=== PATIENT | female | born 1990 | race Caucasian/White ===

== ENCOUNTER 2018-04-14 11:54 | Emergency (ER) | payer OTHER ==
[2015-10-15 22:03] VITALS: BMI 32.0
[2018-04-14] MEDS ORDERED: Lactated Ringer's 1,000 ML IV ONE (12:17)
[2018-04-14 13:02] LABS: BASO % 0.3 % (0.0-2.0); EOS # 0.1 K/uL (0.0-0.7); EOS % 0.8 % (0.0-4.0); HEMOGLOBIN 12.4 g/dL (11.0-16.0); LYMPH # 1.4 K/uL (1.0-4.3); LYMPH % 14.7 % (20.0-40.0); MEAN CORPUSCULAR HGB CONC 34.3 g/dL (33.0-37.0); MEAN PLATELET VOLUME 11.1 fL (7.2-11.7); MONO # 0.7 K/uL (0.0-0.8); MONO % 7.2 % (0.0-10.0); NEUT # 7.1 K/uL (1.8-7.0); RBC 4.12 Mil/uL (3.80-5.20); RED CELL DISTRIBUTION WIDTH 14.1 % (11.5-14.5); WHITE BLOOD COUNT 9.2 K/uL (4.8-10.8)
[2018-04-14 13:04] LABS: MEAN CELL VOLUME 87.6 fL (81.0-99.0)
[2018-04-14 13:05] LABS: SQUAMOUS EPITHIAL 2 /hpf (0-5); URINE BILIRUBIN NEGATIVE (NEGATIVE); URINE BLOOD NEGATIVE (NEGATIVE); URINE CLARITY Clear (Clear); URINE COLOR Yellow (YELLOW); URINE GLUCOSE (UA) NORMAL (Normal); URINE LEUKOCYTE ESTERASE NEG Leu/uL (Negative); URINE PROTEIN NEGATIVE (NEGATIVE); URINE UROBILINOGEN NORMAL mg/dL (0.2-1.0)
[2018-04-14] MEDS ORDERED: Betamethasone Soluspan 30 mg/5mL Inj Susp IM ONE (14:56)
--- NOTE | 2018-04-14 15:22 | US ---
Date of service: 04/14/2018 Indication: 31 wks , Please eval for cervical length Priors: None available Technique: Cervical length was measured. Request was made for the patient to return to the department for additional imaging due to limitations of this examination, per the immunology teacher the ordering doctor/floor declined. Findings : Cervix length measures approximately 3.2 cm. heart rate measures 129 beats per minute. Impression: Cervix length measures approximately 3.2 cm. heart rate measures 129 beats per minute.
--- NOTE | 2018-04-14 16:10 | OBHP ---
Datetime: 04/14/2018 15:59 IP Adm Impression: , intrauterine ; No Active Labor IP Admit Plan: Discharge home Admit Comment, IP Provider: 27 y/o at 31 wks presents with c/o ctx this morning for about and h r. She is not feeling any ctx at present. No c/o VB, LOF. + FM. PMH: Deneis PSH: Denies POBH: x 2 TOCO: Irr ctx EFM: Cat 1 SSE: Cx closed/ No pooling FFN Done VE: Closed Thick/High x 2 US for cervical length- 3.5 cm Labs- WNL, FFN negative A/P: 27 y/o at 31 wks ctx, No cervical changes x 2 IV hydration Pt doesn't feel any ctx US shows normal CL Betamethasone 12 mg im x1 labor precautions given F/U tomorrow for the second dose of beta Abdomen - PN: Normal FHR - Baseline A Provider: 130 Contraction Comments Provider: irregular Gestation - Est Wks by US: 31.0 EGA AdmitDate IP: 31.0 IP Chief Complaint: Uterine contractions NICHD Variability Prov Fetus A: Moderate 6-25bpm NICHD Accel Fetus A IP Provider: 10X10 Dilatation, Provider: 0 Effacement, Provider: 0 Station, Provider: -3 Genitourinary Exam: Normal
[2018-04-14 19:54] VITALS: BP 115/62; PULSE 93
== END 2018-04-14 15:53 | disposition home or self-care (01) ==
LOC: C.EROB 11:54
DX: O47.03 False labor before 37 completed weeks of gestation, third trimester (principal); Z3A.31 31 weeks gestation of pregnancy
CPT/HCPCS: 76830; 81001; 82731; 85025; 96372; 99283; J0702; J7120

== ENCOUNTER 2018-04-15 16:05 | Emergency (ER) | payer OTHER ==
[2015-10-15 22:03] VITALS: BMI 32.0
[2018-04-15] MEDS ORDERED: Betamethasone Soluspan 30 mg/5mL Inj Susp IM ONE (16:14)
[2018-04-16 15:54] VITALS: BP 115/66; PULSE 104
--- NOTE | 2018-04-17 14:03 | OBHP ---
Datetime: 04/15/2018 16:23 IP Adm Impression: , intrauterine ; No Active Labor IP Admit Plan: Observation/Evaluation; Discharge home Admit Comment, IP Provider: 27 y o at 31.1 weeks gestation via 1st trimester sono presents t alan for 2nd dose of betamethasone. Denies any acute complaints. Denies feeling cxs, LOF, or vag blee ding. Reports pos movement. Denies headache, dizziness, vision changes, chest pain, sob, n/v/d/ c, abd pain, urinary complaints, or other symptoms. POBhx: hx 2 prior NSVDs without complications GynHx: denies hx ovarian cysts, fibroids, or STDs PMhx: obesity PSurgHx: denies Allergies: denies Meds: vits Fam hx: denies Soc hx: denies smoking, EtOH, or illicit drug use Primary OB: clinic VE: fingertip, long, posterior heart tracing: baseline 140s, moderate accels, Cat I Irregular cxs on toco A/P: 27 y o at 31.1 weeks gestation via 1st trimester sono presents today for 2nd dose of betamethasone. Pt not in active labor at this time. Vaginal exam fingertip, long, posterior. Pt to be administered Celestone 12 mg x1. Pt stable for d/c to home, to follow-up with OB in clinic on 04/22/18 for appt. Pt instructed if she has vaginal bleeding, leakage of fluids, or feeling contractions, to call her OB or to report to her nearest emergency department. Pt seen, examined with, and plan d/w Dr. Villagran, attending physician. Zen Khoury DO PGY-1 Attending Note: patient seen and evaluated by me with the resident. I agree with the above as docu mented. Cervical exam confirmed by me. Patient received 2nd dose betamethasone. PTL precautions revie wed. Patient stable upon discharge from unit. Can discharge home as above Pelvic Type - PN: Adequate Extremities - PN: Normal Abdomen - PN: Normal Back - PN: Normal Breast - PN: Normal Lungs - PN: Normal Heart - PN: Normal Thyroid - PN: Normal Neurologic - PN: Normal HEENT - PN: Normal General - PN: Normal FHR - Baseline A Provider: 140 Membranes, Provider: Intact Contraction Comments Provider: irregular on toco EGA AdmitDate IP: 31.1 Vital Signs Provider: Reviewed; Within Normal Limits IP Chief Complaint: evaluation; Other NICHD Variability Prov Fetus A: Moderate 6-25bpm NICHD Accel Fetus A IP Provider: 10X10 FHR Category Provider Fetus A: Category I NICHD Decel Fetus A IP Provider: None Dilatation, Provider: 0 Effacement, Provider: 0 Station, Provider: -3 Genitourinary Exam: Normal DTRs - PN: Normal
== END 2018-04-15 16:41 | disposition home or self-care (01) ==
LOC: C.EROB 16:05
DX: Z36.89 Encounter for other specified antenatal screening (principal)
CPT/HCPCS: 96372; 99283; J0702

== ENCOUNTER 2018-09-04 10:21 | Emergency (ER) | payer OTHER ==
[2018-09-04 10:25] VITALS: BMI 32.5
[2018-09-04] MEDS ORDERED: Sodium Chloride 0.9% 1,000 ML IV ONE (10:56)
[2018-09-04 11:06] LABS: BASO % 0.3 % (0.0-2.0); EOS % 0.1 % (0.0-4.0); LYMPH # 1.1 K/uL (1.0-4.3); MEAN CORPUSCULAR HEMOGLOBIN 29.7 pg (27.0-31.0); MEAN CORPUSCULAR HGB CONC 34.1 g/dL (33.0-37.0); MONO # 0.6 K/uL (0.0-0.8); MONO % 7.9 % (0.0-10.0); NEUT # 6.5 K/uL (1.8-7.0); NEUT % 78.7 % (50.0-75.0); NRBC % 0.1 % (0.0-2.0); RBC 4.73 Mil/uL (3.80-5.20); RED CELL DISTRIBUTION WIDTH 14.1 % (11.5-14.5); WHITE BLOOD COUNT 8.2 K/uL (4.8-10.8)
[2018-09-04] MEDS ORDERED: Sodium Chloride 0.9% 1,000 ML ONE (11:08)
[2018-09-04 11:14] LABS: HCG,QUALITATIVE URINE NEGATIVE (NEGATIVE)
[2018-09-04 11:20] LABS: SQUAMOUS EPITHIAL 1 /hpf (0-5); URINE BILIRUBIN NEGATIVE (NEGATIVE); URINE BLOOD NEGATIVE (NEGATIVE); URINE CLARITY Clear (Clear); URINE COLOR Amber (YELLOW); URINE GLUCOSE (UA) NORMAL (Normal); URINE LEUKOCYTE ESTERASE NEG Leu/uL (Negative); URINE PROTEIN NEGATIVE (NEGATIVE); URINE UROBILINOGEN NORMAL mg/dL (0.2-1.0)
[2018-09-04 11:23] LABS: ALB/GLOB RATIO 1.3 (1.0-2.1); ALBUMIN 4.6 g/dL (3.5-5.0); ALT/SGPT 643 U/L (9-52); BLOOD UREA NITROGEN 10 mg/dL (7-17); CALCIUM 9.7 mg/dl (8.6-10.4); GFR NON-AFRICAN AMERICAN > 60; LIPASE 131 U/L (23-300)
[2018-09-04 11:45] LABS: AST/SGOT 889 U/L (14-36)
--- NOTE | 2018-09-04 12:29 | C.PDOC ---
History Of Present Illness 28 y/o female presents to the ED for evaluation of epigastric pain associated with a few episodes of non-bilious vomiting since this morning. No fevers or chills. Otherwise patient denies any chest pain, SOB, cough, sore throat, sneha rrhea, or other associated complaints. Time Seen by Provider: 09/04/18 10:32 Chief Complaint (Nursing): Abdominal Pain History Per: Patient History/Exam Limitations: no limitations Onset/Duration Of Symptoms: Hrs Current Symptoms Are (Timing): Still Present Severity: Moderate Location Of Pain/Discomfort: Epigastric Associated Symptoms: Nausea, Vomiting Past Medical History Reviewed: Historical Data, Nursing Documentation, Vital Signs Vital Signs: Last Vital Signs Temp 99.0 F 09/04/18 10:29 Pulse 64 09/04/18 11:56 Resp 19 09/04/18 11:56 BP 110/66 09/04/18 11:56 Pulse Ox 64 L 09/04/18 11:56 Family History: States: Unknown Family Hx - Social History Hx Tobacco Use: No Hx Alcohol Use: No Hx Substance Use: No - Immunization History Hx Influenza Vaccination: Yes (05/2018) Hx Pneumococcal Vaccination: No Review Of Systems Except As Marked, All Systems Reviewed And Found Negative. Constitutional: Negative for: Fever, Chills ENT: Negative for: Nose Congestion, Throat Pain Cardiovascular: Negative for: Chest Pain Respiratory: Negative for: Cough, Shortness of Breath Gastrointestinal: Positive for: Nausea, Vomiting, Abdominal Pain. Negative for: Diarrhea Musculoskeletal: Negative for: Back Pain Skin: Negative for: Rash Neurological: Negative for: Weakness, Dizziness Physical Exam - Physical Exam Appears: Well, Non-toxic, No Acute Distress Skin: Normal Color, Warm, No Rash Head: Normacephalic Eye(s): bilateral: PERRL Oral Mucosa: Moist Neck: Trachea Midline, No Midline Cervical Tenderness, No Paracervical Tenderness, Supple Chest: Symmetrical, No Deformity, No Tenderness Cardiovascular: Rhythm Regular, No Murmur Respiratory: No Rales, No Rhonchi, No Wheezing, Other (Lungs CTA bilaterally) Gastrointestinal/Abdominal: Soft, Tenderness (Mild epigastric tenderness), No Guarding, No Rebound Back: No CVA Tenderness Extremity: Bilateral: Atraumatic, Normal Color And Temperature, Normal ROM Neurological/Psych: Oriented x3, Normal Speech ED Course And Treatment - Laboratory Results Result Diagrams: 09/04/18 11:02 09/04/18 11:02 Lab Results: Total Bilirubin 1.0 mg/dL (0.2-1.3) 09/04/18 11:02 AST 889 U/L (14-36) H 09/04/18 11:02 ALT 643 U/L (9-52) H D 09/04/18 11:02 Alkaline Phosphatase 115 U/L (38-126) 09/04/18 11:02 Total Protein 8.2 g/dL (6.3-8.3) 09/04/18 11:02 Albumin 4.6 g/dL (3.5-5.0) 09/04/18 11:02 Globulin 3.5 gm/dL (2.2-3.9) 09/04/18 11:02 Albumin/Globulin Ratio 1.3 (1.0-2.1) 09/04/18 11:02 Lipase 131 U/L (23-300) 09/04/18 11:02 Urine Color [place] (YELLOW) 09/04/18 11:02 Urine Clarity Clear (Clear) 09/04/18 11:02 Urine pH 5.0 (5.0-8.0) 09/04/18 11:02 Ur Specific Dix 1.023 (1.003-1.030) 09/04/18 11:02 Urine Protein Negative mg/dL (NEGATIVE) 09/04/18 11:02 Urine Glucose (UA) Normal mg/dL (Normal) 09/04/18 11:02 Urine Ketones Negative mg/dL (NEGATIVE) 09/04/18 11:02 Urine Blood Negative (NEGATIVE) 09/04/18 11:02 Urine Nitrate Negative (NEGATIVE) 09/04/18 11:02 Urine Bilirubin Negative (NEGATIVE) 09/04/18 11:02 Urine Urobilinogen Normal mg/dL (0.2-1.0) 09/04/18 11:02 Ur Leukocyte Esterase Neg Joslyn/uL (Negative) 09/04/18 11:02 Urine WBC (Auto) 1 /hpf (0-5) 09/04/18 11:02 Ur Squamous Epith Cells 1 /hpf (0-5) 09/04/18 11:02 Urine HCG, Qual Negative (NEGATIVE) 09/04/18 11:02 Urine HCG, Qual Negative (NEGATIVE) 09/04/18 11:02 Urine POC: Negative O2 Sat by Pulse Oximetry: 97 (on RA) Pulse Ox Interpretation: Normal - CT Scan/US Gallbladder and hepatic Other Rad Studies (CT/US): Radiology Report Reviewed CT/US Interpretation: Creator : Day Cortes MD. Dictator : Day Cortes MD. Director Patient : Instructor Flying : Day Cortes MD. Approver2 : Report Date : 09/04/2018 13:03:39. My Comment : . Date of service: 09/04/2018. HISTORY: epigastric/RUQ pain. COMPARISON: None. TECHNIQUE: Sonographic evaluation of the right upper quadrant of the abdomen. FINDINGS: LIVER: Measures 16.0 cm in length. There is diffuse increased echogenicity of the liver parenchyma. No mass. No intrahepatic bile duct dilatation. GALLBLADDER: There are multiple gallstones. No wall thickening or pericholecystic fluid. The sonographic Washington's sign is negative. COMMON BILE DUCT: Measures 2.5 mm. No stones. No dilatation. PANCREAS: Unremarkable as visualized. No mass. No ductal dilatation. RIGHT KIDNEY: Measures 11.4 cm in length. Normal echogenicity. No calculus, mass, or hydronephrosis. AORTA: No aneurysmal dilatation. IVC: Unremarkable. OTHER FINDINGS: None . IMPRESSION: Cholelithiasis. No biliary dilatation. Fatty liver. Progress Note: Blood work and UA ordered. Patient given IV fluids, 40 mg IV Protonix, 20 mg IV Pepcid, and 4 mg IV Zofran. Labs reviewed. Will obtain Abdominal US to r/o gall bladder pathology. Pt was OBS in ED for 3 hrs and reports improvement in sx. Afebrile, hemodynamicaly stable. Non-toxic. Abd: benign, (-) guarding, (-) rebound, (-) localized tenderness. Back: (-) CVA tenderness. US results review and discussed with pt (+) gallbladder, no evidence of cholecystitis. Pt advised and ref. to f/u with PMD, GI in 2-3 days for re-eavl. return if any worsening or new chnages. Disposition Counseled Patient/Family Regarding: Studies Performed, Diagnosis, Need For Followup, Rx Given - Disposition Referrals: [facility] [Outside] Disposition: HOME/ ROUTINE Disposition Time: 13:20 Condition: STABLE Additional Instructions: Encourage fluids Take medication as prescribed BRAt diet for 1 week Avoid greasy, fried, spicy food for 2 weeks Follow up with PMD in 2-3 days for re-evaluation. return to ED if any worsening or new changes. Prescriptions: Famotidine [Pepcid] 20 mg PO BID #14 tab Pantoprazole Sodium [Protonix] 40 mg PO DAILY #14 ect Instructions: Gallstones, Nausea and Vomiting, Adult (DC) Forms: [employer] (Estonian) Print Language: SLOVAK - Clinical Impression Clinical Impression: Vomiting, Epigastric abdominal pain, Cholelithiasis - PA / OCCUPATIONAL THERAPIST'S ASSISTANT / Resident Statement MD/DO has reviewed & agrees with the documentation as recorded. - Scribe Statement The provider has reviewed the documentation as recorded by the Kellyibkai Ho All medical record entries made by the Kellyibkai were at my direction and person ally dictated by me. I have reviewed the chart and agree that the record accurately reflects my personal performance of the history, physical exam, medical decision making, and the department course for this patient. I have also personally directed, reviewed, and agree with the discharge instructions and disposition.
[2018-09-04 12:30] VITALS: O2SAT 97
--- NOTE | 2018-09-04 13:07 | US ---
Date of service: 09/04/2018 HISTORY: epigastric/RUQ pain COMPARISON: None. TECHNIQUE: Sonographic evaluation of the right upper quadrant of the abdomen. FINDINGS: LIVER: Measures 16.0 cm in length. There is diffuse increased echogenicity of the liver parenchyma. No mass. No intrahepatic bile duct dilatation. GALLBLADDER: There are multiple gallstones. No wall thickening or pericholecystic fluid. The sonographic Washington's sign is negative. COMMON BILE DUCT: Measures 2.5 mm. No stones. No dilatation. PANCREAS: Unremarkable as visualized. No mass. No ductal dilatation. RIGHT KIDNEY: Measures 11.4 cm in length. Normal echogenicity. No calculus, mass, or hydronephrosis. AORTA: No aneurysmal dilatation. IVC: Unremarkable. OTHER FINDINGS: None . IMPRESSION: Cholelithiasis. No biliary dilatation. Fatty liver.
[2018-09-04 13:50] VITALS: BP 116/75; PULSE 59; RESP 20; TEMP 97.5
== END 2018-09-04 13:48 | disposition home or self-care (01) ==
LOC: C.ER 10:21
DX: K80.20 Calculus of gallbladder without cholecystitis without obstruction (principal); R10.13 Epigastric pain; R11.10 Vomiting, unspecified
CPT/HCPCS: 76705; 80053; 81001; 83690; 84703; 85025; 96361; 96374; 96375; 99284; C9113; J2405; J7030

== ENCOUNTER 2018-09-07 04:05 | Emergency (ER) | payer OTHER ==
[2018-09-07 04:06] VITALS: BMI 32.5
--- NOTE | 2018-09-07 05:54 | C.PDOC ---
History Of Present Illness 28 year old female was evaluated in this ED two days ago for complaints of abdominal pain and was diagnosed with Cholelithiasis. Patient was given Rx for Pepcid and Protonix. Patient returns to the ED for evaluation stating she devel oped strong pain to her right upper quadrant at 0300 today. She also reports associated nausea and vomiting. She denies fever, chills, diarrhea. <Basia Dent - Last Filed: 09/07/18 06:39> History Per: Patient, Spragger ([id number]) History/Exam Limitations: language barrier Onset/Duration Of Symptoms: Hrs Current Symptoms Are (Timing): Still Present Location Of Pain/Discomfort: RUQ Quality Of Discomfort: "Pain" Associated Symptoms: Nausea, Vomiting. denies: Fever, Chills, Diarrhea Additional History Per: Patient Abnormal Vaginal Bleeding: No <Basia Dent - Last Filed: 09/07/18 06:39> <Erma Talley - Last Filed: 09/07/18 11:30> Time Seen by Provider: 09/07/18 05:50 Chief Complaint (Nursing): Abdominal Pain Past Medical History Reviewed: Historical Data, Nursing Documentation, Vital Signs Vital Signs: Last Vital Signs Temp 99.1 F 09/07/18 04:13 Pulse 73 09/07/18 04:13 Resp 20 09/07/18 04:13 BP 118/71 09/07/18 04:13 Pulse Ox 96 09/07/18 04:13 - Medical History PMH: Gall Bladder Disease Surgical History: No Surg Hx Family History: States: Unknown Family Hx - Social History Hx Tobacco Use: No Hx Alcohol Use: No Hx Substance Use: No - Immunization History Hx Influenza Vaccination: No Hx Pneumococcal Vaccination: No <Basia Dent - Last Filed: 09/07/18 06:39> Vital Signs: Last Vital Signs Temp 98.5 F 09/07/18 08:49 Pulse 59 L 09/07/18 08:49 Resp 17 09/07/18 08:49 BP 147/89 09/07/18 08:49 Pulse Ox 98 09/07/18 08:49 <Erma Talley - Last Filed: 09/07/18 11:30> Review Of Systems Constitutional: Negative for: Fever, Chills Gastrointestinal: Positive for: Nausea, Vomiting, Abdominal Pain (right upper quadrant ). Negative for: Diarrhea <Basia Dent - Last Filed: 09/07/18 06:39> Physical Exam - Physical Exam Appears: Non-toxic, No Acute Distress Skin: Normal Color, Warm, Dry Head: Atraumatic, Normacephalic Eye(s): bilateral: Normal Inspection Oral Mucosa: Moist Neck: Supple Chest: Symmetrical, No Deformity, No Tenderness Cardiovascular: Rhythm Regular, No Murmur Respiratory: Normal Breath Sounds, No Rales, No Rhonchi, No Wheezing Gastrointestinal/Abdominal: Soft, Tenderness (right upper quadrant ), No Guarding, No Rebound Extremity: Normal ROM, Capillary Refill (less than 2 seconds ) Neurological/Psych: Normal Speech, Normal Cognition <Basia Dent - Last Filed: 09/07/18 06:39> ED Course And Treatment O2 Sat by Pulse Oximetry: 96 (on RA) Pulse Ox Interpretation: Normal <Basia Dent Last Filed: 09/07/18 06:39> - Laboratory Results Result Diagrams: 09/07/18 06:27 09/07/18 06:27 Lab Results: Total Bilirubin 1.2 mg/dL (0.2-1.3) 09/07/18 06:27 AST 506 U/L (14-36) H D 09/07/18 06:27 ALT 782 U/L (9-52) H D 09/07/18 06:27 Alkaline Phosphatase 182 U/L (38-126) H D 09/07/18 06:27 Total Protein 7.7 g/dL (6.3-8.3) 09/07/18 06:27 Albumin 4.4 g/dL (3.5-5.0) 09/07/18 06:27 Globulin 3.3 gm/dL (2.2-3.9) 09/07/18 06:27 Albumin/Globulin Ratio 1.3 (1.0-2.1) 09/07/18 06:27 Lipase 70 U/L (23-300) 09/07/18 06:27 Progress Note: 8:45- Patient resting comfortably but still having some RUQ pain. On exam, abdomen is soft, (+) Washington's, (-) McBurney's. Patient's liver enzymes worse than during prior ED visit - will consult gen surgery. 9:05- Called by OR nursebonifacio give message to surgery resident. <Erma Talley - Last Filed: 09/07/18 11:30> Medical Decision Making Medical Decision Making: Progress: Bloodwork and US abdomen ordered and reviewed. Morphine IVP, Zofran IVP and IV Fluids ordered. Patient refuses pain and nausea medication, stating she is . IV fluids given. <Basia Dent - Last Filed: 09/07/18 06:39> Disposition <Basia Dent - Last Filed: 09/07/18 06:39> Counseled Patient/Family Regarding: Diagnosis, Need For Followup, Rx Given - Disposition Disposition Time: 11:30 <Erma Talley - Last Filed: 09/07/18 11:30> - Disposition Referrals: Nam Medrano MD [Staff Provider] - Samantha Lopez [Staff Provider] - Disposition: HOME/ ROUTINE Condition: STABLE Prescriptions: Pantoprazole [Protonix EC Tab] 20 mg PO DAILY #30 ect Instructions: Gallstones (DC) Forms: [employer] (Kiswahili) Print Language: HUNGARIAN - Clinical Impression Clinical Impression: Cholelithiasis, Epigastric abdominal pain - Scribe Statement The provider has reviewed the documentation as recorded by the Scribe (Rebecca Ledesma) Provider Attestation: All medical record entries made by the Scribe were at my direction and personally dictated by me. I have reviewed the chart and agree that the record accurately reflects my personal performance of the history, physical exam, medical decision making, and the department course for this patient. I have also personally directed, reviewed, and agree with the discharge instructions and disposition. <Basia Dent - Last Filed: 09/07/18 06:39> Physician Patient Turnover Patient Signed Over To: Erma Talley Handoff Comments: pending labs, ultrasound and disposition <Basia Dent - Last Filed: 09/07/18 06:39> Addendum Addendum: 09/07/18 11:28 Patient evaluted by general surgery team, they do not think patient needs emergent surgical intervention at this time. Patient should follow up in the office with surgery and GI within 1 week. <Erma Talley - Last Filed: 09/07/18 11:30>
[2018-09-07] MEDS ORDERED: Sodium Chloride 0.9% 1,000 ML IV ONE (06:05)
[2018-09-07 06:44] LABS: ALB/GLOB RATIO 1.3 (1.0-2.1); ALBUMIN 4.4 g/dL (3.5-5.0); ALT/SGPT 782 U/L (9-52); AST/SGOT 506 U/L (14-36); BLOOD UREA NITROGEN 6 mg/dL (7-17); CALCIUM 9.8 mg/dl (8.6-10.4); GFR NON-AFRICAN AMERICAN > 60; LIPASE 70 U/L (23-300)
[2018-09-07 06:48] LABS: BASO % 0.7 % (0.0-2.0); EOS % 0.6 % (0.0-4.0); LYMPH # 1.2 K/uL (1.0-4.3); LYMPH % 18.4 % (20.0-40.0); MEAN CELL VOLUME 88.7 fL (81.0-99.0); MEAN CORPUSCULAR HEMOGLOBIN 29.4 pg (27.0-31.0); MEAN CORPUSCULAR HGB CONC 33.2 g/dL (33.0-37.0); MEAN PLATELET VOLUME 10.1 fL (7.2-11.7); MONO # 0.6 K/uL (0.0-0.8); MONO % 9.8 % (0.0-10.0); NEUT # 4.5 K/uL (1.8-7.0); NEUT % 70.5 % (50.0-75.0); RBC 4.4 Mil/uL (3.80-5.20); RED CELL DISTRIBUTION WIDTH 14.3 % (11.5-14.5); WHITE BLOOD COUNT 6.4 K/uL (4.8-10.8)
--- NOTE | 2018-09-07 08:40 | US ---
Date of service: 09/07/2018 HISTORY: Abdominal pain COMPARISON: None. TECHNIQUE: Grayscale imaging was performed. FINDINGS: LIVER: Measures 16.0 cm. There is diffuse increased echogenicity of the liver parenchyma. No mass. No intrahepatic bile duct dilatation. GALLBLADDER: There are multiple gallstones. The gallbladder is partially contracted, mild wall thickening could be related to underdistention. No pericholecystic fluid or positive sonographic Washington's COMMON BILE DUCT: Measures 3.2 mm. No stones. No dilatation. PANCREAS: Normal in size and echotexture. No mass. No ductal dilatation. RIGHT KIDNEY: Measures 11.2cm. Normal echogenicity. No calculus, mass, or hydronephrosis. LEFT KIDNEY: Measures 12.0cm. Normal echogenicity. No calculus, mass, or hydronephrosis. SPLEEN: Normal in size and contour. No mass. AORTA: No aneurysmal dilatation. IVC: Unremarkable. OTHER FINDINGS: None. IMPRESSION: 1. Cholelithiasis. No biliary dilatation. 2. Fatty liver.
[2018-09-07 08:50] VITALS: RESP 17
--- NOTE | 2018-09-07 11:28 | CP.PCM.CON ---
History of Present Illness - History of Present Illness History of Present Illness: General Surgery - Dr. Medrano 28 yo F presents to the ED today for abdominal pain. She states that the onset of the pain was this morning. She describes the pain as a constant, burning sensation that she felt in the epigastric region and radiating up towards her throat. She states that the pain in the morning was a 10/10 but has now resolved. When asked if this happened before, Pt states that she recently came to the ED on Friday (09/04/18) for abdominal pain and was told that she had gallstones. ROS: Pt reports having nausea and vomiting a little in the mornin gwhich has now resolved. Pt denies any fever, headache, double vision, cough, chest pain, diarrhea, constipation, or increased urinary frequency. PMH: None PSH: None NKDA FMHx: Mom: epilepsy. Grandma: hypertension. Past Social Hx: Denies drug, alcohol, or tobacco use. Review of Systems - Review of Systems All systems: reviewed and no additional remarkable complaints except (as per HPI) Past Patient History - Infectious Disease Hx of Infectious Diseases: None - Past Social History Smoking Status: Never Smoked - GASTROINTESTINAL Hx Gall Bladder Disease: Yes - PSYCHIATRIC Hx Substance Use: No - SURGICAL HISTORY Hx Surgeries: Yes Meds Home Medications: Home Medication List Medication Instructions Recorded Confirmed Type Pantoprazole [Protonix EC Tab] 20 mg PO DAILY #30 ect 09/07/18 Rx Allergies/Adverse Reactions: Allergies Allergy/AdvReac Type Severity Reaction Status Date / Time No Known Allergies Allergy Verified 09/04/18 10:23 Physical Exam - Constitutional Appears: No Acute Distress - Head Exam Head Exam: ATRAUMATIC, NORMOCEPHALIC - Eye Exam Eye Exam: EOMI - Respiratory Exam Respiratory Exam: NORMAL BREATHING PATTERN - Cardiovascular Exam Cardiovascular Exam: REGULAR RHYTHM - GI/Abdominal Exam GI & Abdominal Exam: Soft. absent: Distended, Firm, Guarding, Hernia, Rebound, Rigid, Tenderness - Extremities Exam Extremities exam: Positive for: normal inspection - Neurological Exam Neurological exam: Alert, Oriented x3 - Psychiatric Exam Psychiatric exam: Normal Affect, Normal Mood - Skin Skin Exam: Dry, Intact, Normal Color Results - Vital Signs Recent Vital Signs: Last Vital Signs Temp 98.5 F 09/07/18 08:49 Pulse 59 L 03/25/19 08:49 Resp 17 09/07/18 08:49 BP 147/89 09/07/18 08:49 Pulse Ox 98 09/07/18 08:49 - Labs Result Diagrams: 09/07/18 06:27 09/07/18 06:27 Labs: Laboratory Results - last 24 hr 09/07/18 09/07/18 06:27 06:27 WBC 6.4 RBC 4.40 Hgb 13.0 Hct 39.1 MCV 88.7 MCH 29.4 MCHC 33.2 RDW 14.3 Plt Count 209 MPV 10.1 Neut % (Auto) 70.5 Lymph % (Auto) 18.4 L [place] % (Auto) 9.8 Eos % (Auto) 0.6 Baso % (Auto) 0.7 Neut # (Auto) 4.5 Lymph # (Auto) 1.2 [place] # (Auto) 0.6 Eos # (Auto) 0.0 Baso # (Auto) 0.0 Sodium 139 Potassium 3.9 Chloride 105 Carbon Dioxide 27 Anion Gap 11 BUN 6 L Creatinine 0.7 Est GFR ( Amer) > 60 Est GFR (Non-Af Amer) > 60 Random Glucose 124 H Calcium 9.8 Total Bilirubin 1.2 AST 506 H D ALT 782 H D Alkaline Phosphatase 182 H D Total Protein 7.7 Albumin 4.4 Globulin 3.3 Albumin/Globulin Ratio 1.3 Lipase 70 - Imaging and Cardiology US - abdomen Status: Image reviewed by me, Report reviewed by me Assessment & Plan - Assessment and Plan (Free Text) Assessment: 28 yo F w/ epigastric abdominal pain, now resolved, U/S findings of gallstones and otherwise negative Plan: -PO trial -Recc F/U with GI doctor to evaluate for epigastric kike -Pt may F/U with Dr. Medrano in office to discuss elective cholecystectomy for gallstones -Return to ED if symptoms reoccur or worsening DW Dr Medrano
[2018-09-07 12:17] VITALS: BP 127/77; PULSE 64; TEMP 98.6; O2SAT 97
== END 2018-09-07 12:17 | disposition home or self-care (01) ==
LOC: C.ER 04:05
DX: K80.20 Calculus of gallbladder without cholecystitis without obstruction (principal); R10.13 Epigastric pain
CPT/HCPCS: 76700; 80053; 81025; 83690; 85025; 99285; J7030

== ENCOUNTER 2018-09-07 13:59 | Observation (INO) | payer OTHER ==
[2018-09-07 13:59] VITALS: BMI 32.5
--- NOTE | 2018-09-07 15:08 | C.PDOC ---
History Of Present Illness Patient recalled to ED for admission of symptomatic cholelithiasis. She was seen earlier in the day c/o epigastric and RUQ abdominal pain, US showed (+) gallstones. Time Seen by Provider: 09/07/18 15:02 Chief Complaint (Nursing): Medical Clearance History Per: Patient History/Exam Limitations: no limitations Current Symptoms Are (Timing): Better Past Medical History Reviewed: Historical Data, Nursing Documentation, Vital Signs Vital Signs: Last Vital Signs Temp 98.7 F 09/07/18 14:24 Pulse 56 L 09/07/18 14:24 Resp 18 09/07/18 14:24 BP 126/79 09/07/18 14:24 Pulse Ox 99 09/07/18 14:24 - Medical History PMH: Gall Bladder Disease Family History: States: No Known Family Hx - Social History Hx Tobacco Use: No Hx Alcohol Use: No Hx Substance Use: No - Immunization History Hx Influenza Vaccination: No Hx Pneumococcal Vaccination: No Review Of Systems Constitutional: Negative for: Fever, Chills Cardiovascular: Negative for: Chest Pain, Palpitations Respiratory: Negative for: Cough, Shortness of Breath Gastrointestinal: Positive for: Abdominal Pain. Negative for: Nausea, Vomiting, Diarrhea Genitourinary: Negative for: Dysuria, Hematuria Skin: Negative for: Rash Physical Exam - Physical Exam Appears: Well, Non-toxic, No Acute Distress Skin: Normal Color, Warm, Dry Head: Normacephalic Oral Mucosa: Moist Cardiovascular: Rhythm Regular Respiratory: Normal Breath Sounds, No Rales, No Rhonchi, No Wheezing Gastrointestinal/Abdominal: Bowel Sounds, Soft, Tenderness (mild epigastric and RUQ pain), No Distention, No Guarding, No Rebound Back: Normal Inspection, No CVA Tenderness ED Course And Treatment O2 Sat by Pulse Oximetry: 99 - CT Scan/US MRCP Other Rad Studies (CT/US): Read By Radiologist, Radiology Report Reviewed CT/US Interpretation: Accession No. : [id number]. Patient Name / ID : PIERRE GARNER P / [id number]. Exam Date : 09/07/2018 16:36:17 ( Approved ). Study Comment : Sex / Age : F / 28Y. Creator : Leena Suh MD. Dictator : Leena Suh MD. Acute Specialist : Track Car Operator : Leena Suh MD. Approver2 : Report Date : 09/07/2018 18:03:44. My Comment : . MRI abdomen without/with IV contrast. MRCP. Indication: elevated liver enzymes, ruq pain. Technique: Multiplanar, multi sequence magnetic resonance images of the abdomen were obtained without and with the administration of intravenous gadolinium using a multi phase abdomen protocol. Rotating maximum intensity projection images of the biliary system were generated. A total of 1023 images submitted for review. Comparison: Abdominal ultrasound performed 09/07/18. Findings: Cholelithiasis. There is no intrahepatic biliary ductal dilatation. The common bile duct appears within normal limits in caliber and tapers distally. The pancreatic duct appears within normal limits of caliber. No filling defects are seen in the common bile duct or pancreatic duct. The liver, spleen, pancreas, and adrenal glands appear unremarkable. Kidneys enhance symmetrically. No evidence of hydronephrosis or obstructing calculus. No bulky adenopathy identified. Limited views of the inferior thorax appear unremarkable. Impression: Cholelithiasis. No filling defects seen within the common bile duct which appears within normal limits of caliber. Disposition - Disposition Disposition: HOSPITALIZED
[2018-09-07 16:05] LABS: BILIRUBIN,DIRECT 0.2 mg/dL (0.0-0.4)
--- NOTE | 2018-09-07 16:43 | CP.PCM.HP ---
History of Present Illness - History of Present Illness History of Present Illness: General Surgery - Dr. Medrano 28 yo F presents to the ED today for abdominal pain. She states that the onset of the pain was this morning. She describes the pain as a constant, burning sensation that she felt in the epigastric region and radiating up towards her throat. She states that the pain in the morning was a 10/10 but has now resolved. When asked if this happened before, Pt states that she recently came to the ED on Friday (09/04/18) for abdominal pain and was told that she had gallstones. Pt reports having nausea and vomiting a little in the morning which has now resolved. Pt denies any fever, headache, double vision, cough, chest pain, diarrhea, constipation, or increased urinary frequency. PMH: None PSH: None NKDA FMHx: Mom: epilepsy. Grandma: hypertension. Past Social Hx: Denies drug, alcohol, or tobacco use. Pt initially was discharged but was re-called to ER d/t elevated Liver Enzymes. Present on Admission - Present on Admission Any Indicators Present on Admission: No Review of Systems - Review of Systems All systems: reviewed and no additional remarkable complaints except (as per HPI) Past Patient History - Infectious Disease Hx of Infectious Diseases: None - Past Social History Smoking Status: Never Smoked - GASTROINTESTINAL Hx Gall Bladder Disease: Yes - PSYCHIATRIC Hx Substance Use: No - SURGICAL HISTORY Hx Surgeries: Yes Meds Allergies/Adverse Reactions: Allergies Allergy/AdvReac Type Severity Reaction Status Date / Time No Known Allergies Allergy Verified 09/07/18 14:27 Physical Exam - Constitutional Appears: No Acute Distress - Head Exam Head Exam: ATRAUMATIC, NORMAL INSPECTION, NORMOCEPHALIC - Respiratory Exam Respiratory Exam: NORMAL BREATHING PATTERN. absent: Respiratory Distress - Cardiovascular Exam Cardiovascular Exam: REGULAR RHYTHM - GI/Abdominal Exam GI & Abdominal Exam: Soft. absent: Distended, Firm, Guarding, Rebound, Rigid, Tenderness - Neurological Exam Neurological exam: Alert, Oriented x3 - Psychiatric Exam Psychiatric exam: Normal Affect, Normal Mood - Skin Skin Exam: Dry, Intact Results - Vital Signs Recent Vital Signs: Last Vital Signs Temp 98.7 F 09/07/18 14:24 Pulse 56 L 09/07/18 14:24 Resp 18 09/07/18 14:24 BP 126/79 09/07/18 14:24 Pulse Ox 99 09/07/18 15:30 - Labs Labs: Laboratory Results - last 24 hr 09/07/18 15:50 Total Bilirubin 1.0 Direct Bilirubin 0.2 GGT 551 H Amylase 74 Assessment & Plan - Assessment and Plan (Free Text) Assessment: 28 yo F w/ cholelithiasis, elevated liver enzymes -NPO -IVF -GI consult, f/u reccs. -F/U MRCP -IF MRCP Negative plan is for cholecystectomy tomorrow Further reccs as per Dr. Medrano
[2018-09-07] MEDS ORDERED: Gadodiamide 287 MG/ML VIAL (15ML) IV ONE (17:26)
[2018-09-07] MEDS: Lactated Ringer's 1,000 ML IV SCH (17:50)
--- NOTE | 2018-09-07 18:07 | MRI ---
MRI abdomen without/with IV contrast MRCP Indication: elevated liver enzymes, ruq pain Technique: Multiplanar, multi sequence magnetic resonance images of the abdomen were obtained without and with the administration of intravenous gadolinium using a multi phase abdomen protocol. Rotating maximum intensity projection images of the biliary system were generated. A total of 1023 images submitted for review Comparison: Abdominal ultrasound performed 09/07/18 Findings: Cholelithiasis. There is no intrahepatic biliary ductal dilatation. The common bile duct appears within normal limits in caliber and tapers distally. The pancreatic duct appears within normal limits of caliber. No filling defects are seen in the common bile duct or pancreatic duct. The liver, spleen, pancreas, and adrenal glands appear unremarkable. Kidneys enhance symmetrically. No evidence of hydronephrosis or obstructing calculus. No bulky adenopathy identified. Limited views of the inferior thorax appear unremarkable. Impression: Cholelithiasis. No filling defects seen within the common bile duct which appears within normal limits of caliber.
[2018-09-08] MEDS: Lactated Ringer's 1,000 ML IV SCH (03:12)
[2018-09-08 05:16] LABS: BASO % 0.7 % (0.0-2.0); EOS # 0.1 K/uL (0.0-0.7); HEMOGLOBIN 12.8 g/dL (11.0-16.0); LYMPH # 2.1 K/uL (1.0-4.3); LYMPH % 39.8 % (20.0-40.0); MEAN CELL VOLUME 88.4 fL (81.0-99.0); MEAN CORPUSCULAR HEMOGLOBIN 29.5 pg (27.0-31.0); MEAN CORPUSCULAR HGB CONC 33.4 g/dL (33.0-37.0); MEAN PLATELET VOLUME 10.1 fL (7.2-11.7); MONO # 0.5 K/uL (0.0-0.8); MONO % 8.8 % (0.0-10.0); NEUT # 2.6 K/uL (1.8-7.0); NEUT % 48.7 % (50.0-75.0); NRBC % 0.1 % (0.0-2.0); RBC 4.34 Mil/uL (3.80-5.20); WHITE BLOOD COUNT 5.3 K/uL (4.8-10.8)
[2018-09-08 05:35] LABS: ALB/GLOB RATIO 1.3 (1.0-2.1); ALBUMIN 4.1 g/dL (3.5-5.0); ALT/SGPT 667 U/L (9-52); AST/SGOT 200 U/L (14-36); BLOOD UREA NITROGEN 7 mg/dL (7-17); CALCIUM 9.8 mg/dl (8.6-10.4); GFR NON-AFRICAN AMERICAN > 60
[2018-09-08] MEDS ORDERED: Midazolam 2 MG/2 ML VIAL ONE (07:32)
[2018-09-08] MEDS ORDERED: Propofol 10 mg/ml Inj (20 ML) ONE (07:32)
[2018-09-08] MEDS ORDERED: Rocuronium 10 mg/ml (5 ml) ONE (07:34)
[2018-09-08] MEDS ORDERED: Phenylephrine 10 mg/ml Inj ONE (07:34)
[2018-09-08] MEDS ORDERED: Bupivacaine Liposomal Inj 20 ml INFIL ONE (07:40)
[2018-09-08] MEDS ORDERED: Sodium Chloride 0.9% 40 ML IV ONE (07:46)
[2018-09-08] MEDS ORDERED: ceFAZolin 1 gm in NS 2 GM/200 ML BAG IVPB ONE (07:46)
[2018-09-08] MEDS ORDERED: Bupivacaine HCl 0.25% PF (10 ml) Inj ONE (07:47)
[2018-09-08] MEDS ORDERED: Lidocaine/Epinephrine 1% 1:100000 10 ML IJ ONE (07:47)
--- NOTE | 2018-09-08 09:06 | RAD ---
Date of service: 09/07/2018 HISTORY: Preoperative assessment COMPARISON: Comparison made with chest radiograph 10/15/2015 TECHNIQUE: 1 view obtained. FINDINGS: LUNGS: No active pulmonary disease. PLEURA: No significant pleural effusion identified, no pneumothorax apparent. CARDIOVASCULAR: No aortic atherosclerotic calcification present. Normal cardiac size. No pulmonary vascular congestion. OSSEOUS STRUCTURES: No significant abnormalities. VISUALIZED UPPER ABDOMEN: Normal. OTHER FINDINGS: None. IMPRESSION: No active disease.
[2018-09-08] MEDS ORDERED: Neostigmine 1:1000 (1 mg/ml) Inj ONE (09:33)
[2018-09-08] MEDS ORDERED: HYDROmorphone 0.5 mg/0.5 ml ISec IVP PRN (10:07)
--- NOTE | 2018-09-08 10:07 | PCM.SURG1 ---
Surgeon's Initial Post Op Note - Surgeon's Notes Surgeon: Dr. Medrano Welding Equipment Repairer Supervisor: Dr. Cruz PGY3; Dulce Elder Type of Anesthesia: General Endo, Block Regional, Local Pre-Operative Diagnosis: cholelithiasis Operative Findings: see dictation Post-Operative Diagnosis: same Operation Performed: robotic cholecystectomy w/ TAP block Specimen/Specimens Removed: gallbladder Estimated Blood Loss: EBL {In ML}: 10 Blood Products Given: N/A Drains Used: No Drains Post-Op Condition: Good Date of Surgery/Procedure: 09/08/18 Time of Surgery/Procedure: 10:07
[2018-09-08 10:59] VITALS: RESP 20; O2SAT 100
[2018-09-08] MEDS ORDERED: Piperacillin/Tazobact 3.375 GM in Sodium Chloride 100 ML IVPB SCH (11:00)
[2018-09-08 11:58] VITALS: BP 114/72; PULSE 62; TEMP 98
--- NOTE | 2018-09-08 13:54 | CP.PCM.DIS ---
Provider - Provider Date of Admission: 09/07/18 15:32 Attending physician: Nam Medrano MD Consults: 09/07/18 15:28 Physician Consult Routine Comment: epigastric pain, elevated liver enzymes Consulting Provider: Samantha Lopez Consulting Physician: Samantha Lopez Reason for Consult: gi Time Spent in preparation of Discharge (in minutes): 30 Hospital Course - Lab Results Lab Results: Most Recent Lab Values WBC 5.3 K/uL (4.8-10.8) 09/08/18 05:13 RBC 4.34 Mil/uL (3.80-5.20) 09/08/18 05:13 Hgb 12.8 g/dL (11.0-16.0) 09/08/18 05:13 Hct 38.3 % (34.0-47.0) 09/08/18 05:13 MCV 88.4 fL (81.0-99.0) 09/08/18 05:13 MCH 29.5 pg (27.0-31.0) 09/08/18 05:13 MCHC 33.4 g/dL (33.0-37.0) 09/08/18 05:13 RDW 14.0 % (11.5-14.5) 09/08/18 05:13 Plt Count 186 K/uL (130-400) 09/08/18 05:13 MPV 10.1 fL (7.2-11.7) 09/08/18 05:13 Neut % (Auto) 48.7 % (50.0-75.0) L 09/08/18 05:13 Lymph % (Auto) 39.8 % (20.0-40.0) 09/08/18 05:13 Bulloch % (Auto) 8.8 % (0.0-10.0) 09/08/18 05:13 Eos % (Auto) 2.0 % (0.0-4.0) 09/08/18 05:13 Baso % (Auto) 0.7 % (0.0-2.0) 09/08/18 05:13 Neut # (Auto) 2.6 K/uL (1.8-7.0) 09/08/18 05:13 Lymph # (Auto) 2.1 K/uL (1.0-4.3) 09/08/18 05:13 Bulloch # (Auto) 0.5 K/uL (0.0-0.8) 09/08/18 05:13 Eos # (Auto) 0.1 K/uL (0.0-0.7) 09/08/18 05:13 Baso # (Auto) 0.0 K/uL (0.0-0.2) 09/08/18 05:13 Sodium 138 mmol/L (132-148) 09/08/18 05:13 Potassium 4.0 mmol/L (3.6-5.2) 09/08/18 05:13 Chloride 105 mmol/L (98-107) 09/08/18 05:13 Carbon Dioxide 27 mmol/L (22-30) 09/08/18 05:13 Anion Gap 10 (10-20) 09/08/18 05:13 BUN 7 mg/dL (7-17) 09/08/18 05:13 Creatinine 0.8 mg/dL (0.7-1.2) 09/08/18 05:13 Est GFR ( Amer) > 60 09/08/18 05:13 Est GFR (Non-Af Amer) > 60 09/08/18 05:13 Random Glucose 81 mg/dL (65-105) D 09/08/18 05:13 Calcium 9.8 mg/dl (8.6-10.4) 09/08/18 05:13 Phosphorus 5.0 mg/dL (2.5-4.5) H 09/08/18 05:13 Magnesium 1.9 mg/dL (1.6-2.3) 09/08/18 05:13 Total Bilirubin 1.2 mg/dL (0.2-1.3) 09/08/18 05:13 Direct Bilirubin 0.2 mg/dL (0.0-0.4) 09/07/18 15:50 GGT 551 U/L (8-78) H 09/07/18 15:50 AST 200 U/L (14-36) H D 09/08/18 05:13 ALT 667 U/L (9-52) H 09/08/18 05:13 Alkaline Phosphatase 155 U/L (38-126) H 09/08/18 05:13 Total Protein 7.2 g/dL (6.3-8.3) 09/08/18 05:13 Albumin 4.1 g/dL (3.5-5.0) 09/08/18 05:13 Globulin 3.1 gm/dL (2.2-3.9) 09/08/18 05:13 Albumin/Globulin Ratio 1.3 (1.0-2.1) 09/08/18 05:13 Amylase 74 U/L (30-110) 09/07/18 15:50 Urine HCG, Qual Negative (NEGATIVE) 09/08/18 04:20 - Hospital Course Hospital Course: 28 y/o F w/ no PMHx presented to the ED on 09/07/18 c/o abd pain. Pt was found to have cholelithiasis w/ elevated LFTs and GGT. Pt underwent robotic cholecystectomy on HD#1. Pt tolerated procedure well w/ no complications. Pain is well controlled. Pt is cleared for discharge w/ instructions to f/u in clinic/office. For full hospital stay see EMR. Discharge Exam - Head Exam Head Exam: ATRAUMATIC, NORMAL INSPECTION, NORMOCEPHALIC - Eye Exam Eye Exam: Normal appearance - ENT Exam ENT Exam: Mucous Membranes Moist - Respiratory Exam Respiratory Exam: NORMAL BREATHING PATTERN. absent: Accessory Muscle Use, Respiratory Distress - Cardiovascular Exam Cardiovascular Exam: REGULAR RHYTHM. absent: Bradycardia, Tachycardia - GI/Abdominal Exam GI & Abdominal Exam: Soft, Tenderness (appropriate TTP). absent: Distended, Firm, Guarding Additional comments: dressing c/d/i - Extremities Exam Extremities exam: normal inspection - Neurological Exam Neurological exam: Alert, Oriented x3 - Psychiatric Exam Psychiatric exam: Normal Affect, Normal Mood - Skin Skin Exam: Dry, Intact, Normal Color, Warm Discharge Plan - Discharge Medications Prescriptions: Docusate [Colace] 100 mg PO BID #60 cap oxyCODONE/Acetaminophen [Percocet 5/325 mg Tab] 1 ea PO Q6 PRN #20 tab PRN Reason: Pain, Moderate (4-7) - Follow Up Plan Condition: GOOD Disposition: HOME/ ROUTINE Instructions: How to Prevent Surgical Site Infections, Cholecystectomy, Laparoscopic Surgery Additional Instructions: Follow up with PMD in 7-10 days Follow up with Dr. medrano in office in 7-10 days Take all medication as prescribed continue all home medications Do not breast feed for 1st 24hrs after surgery. No heavy lifting (nothing greater than 10lbs) for 4-6weeks Pt may shower tomorrow however do not soak or scrub incisions. No pools, tubs, or baths Return to the ED/Call Dr. Medrano if fever >101, pain, redness, swelling, drainage from incisions. Referrals: Nam Medrano MD [Staff Provider] - Samantha Lopez [Staff Provider] -
[2018-09-08 14:39] LABS: HEPATITIS B SURFACE AG Negative (NEGATIVE)
[2018-09-08 14:45] LABS: HEPATITIS A IGM NEGATIVE (NEGATIVE); HEPATITIS B CORE AB NEGATIVE (NEGATIVE)
[2018-09-08 14:56] LABS: HEPATITIS C ANTIBODY NEGATIVE (NEGATIVE)
--- NOTE | 2018-09-08 21:28 | OP ---
PROCEDURE DATE: 09/08/2018 PREOPERATIVE DIAGNOSIS: Chronic cholecystitis and cholelithiasis. POSTOPERATIVE DIAGNOSIS: Chronic cholecystitis and cholelithiasis. PROCEDURES DONE: 1. Robotic cholecystectomy. 2. Laparoscopic bilateral TAP block placement. SURGEON: Nam Medrano MD COTA: KEDAR Mata; Tomasa Cruz, PGY-3 Resident ANESTHESIA: General endotracheal tube anesthesia.. ESTIMATED BLOOD LOSS: Around 10 mL. DRAINS: None. PATHOLOGY: Gallbladder with gallstone was sent for the pathology. COMPLICATIONS: None. INTRAOPERATIVE FINDINGS: The patient had changes of chronic cholecystitis and cholelithiasis. The lower part of the gallbladder was acutely inflamed, and the patient had a gallstone. DESCRIPTION OF PROCEDURE: On intraoperative steps, this 28-year-old female who was diagnosed with chronic cholecystitis and cholelithiasis and the patient was consented for the robotic cholecystectomy, possible open, brought to the OR, placed supine on operating table. After induction of anesthesia, the abdomen was prepped and draped in usual sterile fashion. Supraumbilical incision was made using open technique. Peritoneal cavity was entered. Pneumo was created. Another 3-8 mm port was placed in upper abdomen. Robot was brought in. Camera arm as well as arm one and arm two was docked, and gallbladder was retracted cranially. The body as well as the Calot's triangle appeared to be acutely inflamed, and the Calot's triangle dissection was done. The anterior and posterior leaflets were dissected. Top-down approach was done. The critical view of the safety was identified and intraoperative Firefly was used to identify the ductal anatomy, and the cystic duct and cystic artery were clipped at three places and cut in between two clips nearby gallbladder, and gallbladder was dissected free from the gallbladder fossa, taken in EndoCatch bag, taken out through the umbilical port site and sent off the table for the pathology. There was a proper hemostasis in each and every part of the procedure. Now, bilateral TAP block was given. The 30:30 mL of Exparel with Decadron was injected into the transverse abdominis muscles plane area and after proper TAP block, all the ports were taken out under vision. Pneumo was deflated, and umbilical port site was closed in two-layer, the fascia with 0 Vicryl interrupted suture, skin with a 4-0 Monocryl and dry sterile dressing was applied. The patient tolerated procedure well. Count of instrument and gauze was correct. There was no apparent complication. The patient was extubated in OR and sent to the postanesthesia care unit in stable condition. Nam Medrano MD
== END 2018-09-08 17:13 | disposition home or self-care (01) ==
LOC: C.ER 13:59 → C.3T 15:32
PROVIDERS: ADMIT Surgery Surgical Critical Care; ATTEND Surgery Surgical Critical Care
DX: K80.10 Calculus of gallbladder with chronic cholecystitis without obstruction (principal)
CPT/HCPCS: 36415; 47562; 71045; 74183; 80053; 80074; 82150; 82247; 82248; 82977; 83735; 84100; 84703; 85025; 86308; 88304; 99283; A9579; G0378; J0690; J1100; J1170; J2001; J2250; J2370; J2405; J2543; J2704; J2710; J3010; J7120